=== PATIENT | female | born 1995 | race American Indian/Alaskan Native ===

== ENCOUNTER 2017-06-25 15:09 | Emergency (ER) | payer OTHER ==
[2017-06-25] MEDS ORDERED: TESSALON PERLES PO ONE (19:14)
[2017-06-25] MEDS ORDERED: MOTRIN PO ONE (19:14)
--- NOTE | 2017-06-25 20:27 | Emergency Department Report ---
- General Chief Complaint: Upper Respiratory Infection Stated Complaint: FLU LIKE SYMPTOMS Time Seen by Provider: 06/25/17 19:06 Source: patient Mode of arrival: Ambulatory Limitations: No Limitations - History of Present Illness Initial Comments: This is a 22-year-old female nontoxic, well nourished in appearance, no acute signs of distress presents to the ED with c/o of productive cough, body aches, rhinorrhea, nasal congestion, and sore throat x2 days. Patient describes productive cough as yellow mucus production. Patient denies any sick contact. Patient denies any recent travels, long car, recent hospital stays. Patient denies any calf pain or calf tenderness. Patient denies any chest pain, short of breath, fever, chills, nausea, vomiting, hemoptysis, numbness, tingling, headache or stiff neck. Patient denies any drug allergies . PMH includes DM. Last menstrual cycle 06/12/2017. Patient denies any chances of . MD Complaint: cough, sore throat, rhinorrhea, nasal congestion, other (body aches) -: days(s) (2) Severity: mild Severity scale (0 -10): 8 Quality: aching Consistency: constant Improves With: nothing Worsens With: nothing Associated Symptoms: rhinorrhea, nasal congestion, sore throat, cough. denies: fever, chills, myalgias, diaphoresis, headache, stiff neck, chest pain, shortness of breath, abdominal pain, nausea, vomiting, diarrhea, dysuria, rash, confusion, right sweats, weight loss, epistaxis, hoarseness, ear pain Treatments Prior to Arrival: none - Related Data Home Medications Medication Instructions Recorded Confirmed Last Taken HumuLIN 70-30 Vial 03/29/16 03/29/16 HumuLIN R 03/29/16 03/29/16 Previous Rx's Medication Instructions Recorded Last Taken Type Diphenhydramine HCl [Benadryl 25 mg PO Q6H #30 tablet 03/29/16 Unknown Rx Allergy TAB] Prednisone [predniSONE 10 mg 10 mg PO .TAPER #1 tab.ds.pk 03/29/16 Unknown Rx (6-Day Pack, 21 Tabs)] Azithromycin [Zithromax Z-ISREAL] 250 mg PO DAILY #6 tablet 06/25/17 Unknown Rx Benzonatate [Tessalon Perle] 100 mg PO Q6H PRN #20 capsule 06/25/17 Unknown Rx Ibuprofen [Motrin] 600 mg PO Q8H PRN #30 tablet 06/25/17 Unknown Rx Oseltamivir [Tamiflu] 75 mg PO BID #14 cap 06/25/17 Unknown Rx Allergies Allergy/AdvReac Type Severity Reaction Status Date / Time Fish Containing Products Allergy Rash Verified 03/29/16 12:41 ED Review of Systems ROS: Stated complaint: FLU LIKE SYMPTOMS Other details as noted in HPI Constitutional: denies: chills, fever Eyes: denies: eye pain, eye discharge, vision change ENT: denies: ear pain, throat pain Respiratory: cough. denies: shortness of breath, wheezing Cardiovascular: denies: chest pain, palpitations Endocrine: no symptoms reported Gastrointestinal: denies: abdominal pain, nausea, diarrhea Genitourinary: denies: urgency, dysuria, discharge Musculoskeletal: denies: back pain, joint swelling, arthralgia Skin: denies: rash, lesions Neurological: denies: headache, weakness, paresthesias Psychiatric: denies: anxiety, depression Hematological/Lymphatic: denies: easy bleeding, easy bruising ED Past Medical Hx - Past Medical History Hx Diabetes: Yes (Type I) Hx Arthritis: No Additional medical history: eczema - Surgical History Past Surgical History?: No - Social History Smoking Status: Never Smoker Substance Use Type: None - Medications Home Medications: Home Medications Medication Instructions Recorded Confirmed Last Taken Type Diphenhydramine HCl [Benadryl 25 mg PO Q6H #30 tablet 03/29/16 Unknown Rx Allergy TAB] HumuLIN 70-30 Vial 03/29/16 03/29/16 History HumuLIN R 03/29/16 03/29/16 History Prednisone [predniSONE 10 mg 10 mg PO .TAPER #1 tab.ds.pk 03/29/16 Unknown Rx (6-Day Pack, 21 Tabs)] Azithromycin [Zithromax Z-ISREAL] 250 mg PO DAILY #6 tablet 06/25/17 Unknown Rx Benzonatate [Tessalon Perle] 100 mg PO Q6H PRN #20 capsule 06/25/17 Unknown Rx Ibuprofen [Motrin] 600 mg PO Q8H PRN #30 tablet 06/25/17 Unknown Rx Oseltamivir [Tamiflu] 75 mg PO BID #14 cap 06/25/17 Unknown Rx ED Physical Exam - General Limitations: No Limitations General appearance: alert, in no apparent distress - Head Head exam: Present: atraumatic, normocephalic - Eye Eye exam: Present: normal appearance Pupils: Present: normal accommodation - ENT ENT exam: Present: normal exam, mucous membranes moist, TM's normal bilaterally , normal external ear exam - Expanded ENT Exam Expanded Ear exam: Present: normal external inspection Mouth exam: Present: normal external inspection, tongue normal. Absent: drooling, trismus, muffled voice, tongue elevation, laceration Teeth exam: Present: normal inspection Throat exam: Positive: normal inspection, tonsillar erythema, other (Uvula midline. No abscess or swelling notd. ). Negative: tonsillomegaly, tonsillar exudate, R peritonsillar mass, L peritonsillar mass - Neck Neck exam: Present: normal inspection, full ROM. Absent: tenderness, meningismus, lymphadenopathy, thyromegaly - Respiratory Respiratory exam: Present: normal lung sounds bilaterally. Absent: respiratory distress, wheezes, rales, rhonchi, stridor, chest wall tenderness, accessory muscle use, decreased breath sounds, prolonged expiratory - Cardiovascular Cardiovascular Exam: Present: regular rate, normal rhythm, normal heart sounds. Absent: irregular rhythm, systolic murmur, diastolic murmur, rubs, gallop - GI/Abdominal GI/Abdominal exam: Present: soft, normal bowel sounds. Absent: distended, tenderness, guarding, rebound, rigid, diminished bowel sounds - Rectal Rectal exam: Present: deferred - Extremities Exam Extremities exam: Present: normal inspection, full ROM, normal capillary refill - Back Exam Back exam: Present: normal inspection, full ROM - Neurological Exam Neurological exam: Present: alert, oriented X3, normal gait - Psychiatric Psychiatric exam: Present: normal affect, normal mood - Skin Skin exam: Present: warm, dry, intact, normal color. Absent: rash ED Course Vital Signs 06/25/17 06/25/17 06/25/17 15:22 19:26 20:26 Temperature 99.3 F Pulse Rate 102 H Respiratory 18 18 18 Rate Blood Pressure 143/95 Blood Pressure [Left] O2 Sat by Pulse 100 Oximetry 06/25/17 21:13 Temperature Pulse Rate 71 Respiratory 18 Rate Blood Pressure Blood Pressure 126/80 [Left] O2 Sat by Pulse 98 Oximetry - Reevaluation(s) Reevaluation #1: 06/25/17 20:34 Patient is speaking in full sentences with no signs of distress noted. ED Medical Decision Making - Medical Decision Making This is a 22-year-old female that presents with upper respiratory infection and influenza. Patient is stable and was examined by me. Chest x-ray has been obtained and dictated by radiologist with normal exam. Patient is notified of x -ray results with no questions noted. Due to patient having symptoms of upper respiratory infection and symptoms of influenza and worsening I will treat patient empirically Tamiflu with zpak. Patient is within the >72 hour window for tamiflu. Patient was instructed to increase hydration, rest and take Motrin for fever episodes. Patient received motrin and tesslone perrls in the ED. Vitals stable. Patient is nonfebrile and normal heart rate. Patient was orally hydrated and patient tolerated well known nausea or vomiting. Patient was instructed Follow-up with a primary care doctor in 3-5 days or if symptoms worsen and continue return to emergency room as soon as possible. At time time of discharge, the patient does not seem toxic or ill in appearance. No acute signs of distress noted. Patient agrees to discharge treatment plan of care. No further questions noted by the patient. Critical care attestation.: If time is entered above; I have spent that time in minutes in the direct care of this critically ill patient, excluding procedure time. ED Disposition Clinical Impression: Influenza Upper respiratory infection Qualifiers: URI type: unspecified URI Qualified Code(s): J06.9 - Acute upper respiratory infection, unspecified Disposition: DC-01 TO HOME OR SELFCARE Is pt being admited?: No Does the pt Need Aspirin: No Condition: Stable Instructions: Azithromycin (By mouth), Oseltamivir (By mouth), Influenza (ED), Upper Respiratory Infection (ED) Additional Instructions: Follow-up with a primary care doctor in 3-5 days or if symptoms worsen and continue return to emergency room as soon as possible. Prescriptions: Azithromycin [Zithromax Z-ISREAL] 250 mg PO DAILY #6 tablet Benzonatate [Tessalon Perle] 100 mg PO Q6H PRN #20 capsule PRN Reason: Cough Ibuprofen [Motrin] 600 mg PO Q8H PRN #30 tablet PRN Reason: Pain Oseltamivir [Tamiflu] 75 mg PO BID #14 cap Referrals: PRIMARY CARE,MD [Primary Care Provider] - 3-5 Days TIO LECHUGA MD [Staff Physician] - 3-5 Days [facility] [Outside] - 3-5 Days [facility] [Outside] - 3-5 Days Forms: Work/School Release Form(ED)
[2017-06-25 21:14] VITALS: BP 126/80
--- NOTE | 2017-06-25 22:21 | XRay Report ---
FINAL REPORT PROCEDURE: XR CHEST ROUTINE 2V TECHNIQUE: PA and lateral chest radiographs were obtained. CPT 41856 HISTORY: cough COMPARISON: No prior studies are available for comparison. FINDINGS: Heart: Normal. Mediastinum/Vessels: Normal. Lungs/Pleural space: Normal. Bony thorax: No acute osseous abnormality. Other: IMPRESSION: Negative examination.
== END 2017-06-25 22:49 | disposition home or self-care (01) ==
LOC: ED 15:09
DX: J11.1 Influenza due to unidentified influenza virus with other respiratory manifestations (principal); J06.9 Acute upper respiratory infection, unspecified; E10.8 Type 1 diabetes mellitus with unspecified complications
CPT/HCPCS: 71046

== ENCOUNTER 2018-05-22 14:00 | Emergency (ER) | payer OTHER ==
--- NOTE | 2018-05-22 15:30 | Emergency Department Report ---
ED Recheck HPI - General Chief Complaint: Abdominal Pain Stated Complaint: MED REFILL/ABD PAIN/MOUTH PAIN Time Seen by Provider: 05/22/18 15:25 Source: patient Mode of arrival: Ambulatory Limitations: No Limitations - History of Present Illness Initial Comments: This is a 23 year old female that presents for medication refills. Past medical history of diabetes mellitus type I. Patient states she went to get refills last month but they didn't tell her she needed more refills. She is completely out of humalin 70/30. Patient state she took her last dose this morning. She denies diaphoresis, shortness of breath, chest pain, or visual changes. MD Complaint: medication refill request Returns Today for: request for prescription Symptoms Since Prior Visit: no new symptoms Context: ran out of medication Associated Symptoms: none - Related Data Home Medications Medication Instructions Recorded Confirmed Last Taken HumuLIN 70-30 Vial 03/29/16 03/29/16 HumuLIN R 03/29/16 03/29/16 Previous Rx's Medication Instructions Recorded Last Taken Type Diphenhydramine HCl [Benadryl 25 mg PO Q6H #30 tablet 03/29/16 Unknown Rx Allergy TAB] Prednisone [predniSONE 10 mg 10 mg PO .TAPER #1 tab.ds.pk 03/29/16 Unknown Rx (6-Day Pack, 21 Tabs)] Azithromycin [Zithromax Z-ISREAL] 250 mg PO DAILY #6 tablet 06/25/17 Unknown Rx Benzonatate [Tessalon Perle] 100 mg PO Q6H PRN #20 capsule 06/25/17 Unknown Rx Ibuprofen [Motrin] 600 mg PO Q8H PRN #30 tablet 06/25/17 Unknown Rx Oseltamivir [Tamiflu] 75 mg PO BID #14 cap 06/25/17 Unknown Rx Insulin NPH Hum/Reg Insulin Hm 100 unit SQ BID #1 vial 05/22/18 Unknown Rx [HumuLIN 70-30 Vial] Allergies Allergy/AdvReac Type Severity Reaction Status Date / Time Fish Containing Products Allergy Rash Verified 03/29/16 12:41 ED Review of Systems ROS: Stated complaint: MED REFILL/ABD PAIN/MOUTH PAIN Other details as noted in HPI Constitutional: denies: chills, fever Respiratory: denies: cough, shortness of breath, wheezing Cardiovascular: denies: chest pain, palpitations Gastrointestinal: denies: abdominal pain, nausea, diarrhea Skin: denies: rash, lesions Neurological: denies: headache, weakness, paresthesias Psychiatric: denies: anxiety, depression ED Past Medical Hx - Past Medical History Hx Diabetes: Yes (Type I) Hx Arthritis: No Additional medical history: eczema - Social History Smoking Status: Never Smoker Substance Use Type: None - Medications Home Medications: Home Medications Medication Instructions Recorded Confirmed Last Taken Type Diphenhydramine HCl [Benadryl 25 mg PO Q6H #30 tablet 03/29/16 Unknown Rx Allergy TAB] HumuLIN 70-30 Vial 03/29/16 03/29/16 History HumuLIN R 03/29/16 03/29/16 History Prednisone [predniSONE 10 mg 10 mg PO .TAPER #1 tab.ds.pk 03/29/16 Unknown Rx (6-Day Pack, 21 Tabs)] Azithromycin [Zithromax Z-ISREAL] 250 mg PO DAILY #6 tablet 06/25/17 Unknown Rx Benzonatate [Tessalon Perle] 100 mg PO Q6H PRN #20 capsule 06/25/17 Unknown Rx Ibuprofen [Motrin] 600 mg PO Q8H PRN #30 tablet 06/25/17 Unknown Rx Oseltamivir [Tamiflu] 75 mg PO BID #14 cap 06/25/17 Unknown Rx Insulin NPH Hum/Reg Insulin Hm 100 unit SQ BID #1 vial 05/22/18 Unknown Rx [HumuLIN 70-30 Vial] ED Physical Exam - General Limitations: No Limitations General appearance: alert, in no apparent distress - Respiratory Respiratory exam: Present: normal lung sounds bilaterally. Absent: respiratory distress - Cardiovascular Cardiovascular Exam: Present: regular rate, normal rhythm. Absent: systolic murmur, diastolic murmur, rubs, gallop - GI/Abdominal GI/Abdominal exam: Present: soft, normal bowel sounds. Absent: distended, tenderness, guarding, rebound, rigid, organomegaly, mass - Neurological Exam Neurological exam: Present: alert, oriented X3, normal gait - Psychiatric Psychiatric exam: Present: normal affect, normal mood - Skin Skin exam: Present: warm, dry, intact, normal color. Absent: rash ED Course Vital Signs 05/22/18 15:25 Temperature 98.5 F Pulse Rate 85 Respiratory 20 Rate Blood Pressure 134/92 Blood Pressure 134/92 [Right] O2 Sat by Pulse 100 Oximetry ED Recheck MDM - Differential Diagnosis Prescription Refill(s) - Medical Decision Making Patient was examined by me. Vitals are normal and patient is in no acute distress. Patient is asymptomatic and requesting medication refills for diabetes. Start Humulin 70/30. Plan discussed with patient to discharge home and treat outpatient. She agrees with ER plan. Patient discharged home in stable condition. Follow up with PCP or motel front desk clerk for continued care. Critical care attestation.: If time is entered above; I have spent that time in minutes in the direct care of this critically ill patient, excluding procedure time. ED Disposition Clinical Impression: Encounter for medication refill Diabetes mellitus Qualifiers: Diabetes mellitus type: type 1 Diabetes mellitus complication status: without complication Qualified Code(s): E10.9 - Type 1 diabetes mellitus without complications Disposition: TO HOME OR SELFCARE Is pt being admited?: No Does the pt Need Aspirin: No Condition: Stable Instructions: Diabetes Mellitus Type 1 in Adults (ED) Additional Instructions: Follow-up with your primary care doctor or motel front desk clerk for continued refills. Prescriptions: Insulin NPH Hum/Reg Insulin Hm [HumuLIN 70-30 Vial] 100 unit SQ BID #1 vial Referrals: [facility] [Outside] - 3-5 Days [facility] [Outside] - 3-5 Days [facility] [Outside] - 3-5 Days Time of Disposition: 15:38
== END 2018-05-22 15:51 | disposition home or self-care (01) ==
LOC: ED 14:00
CPT/HCPCS: 99282

== ENCOUNTER 2018-06-03 04:46 | Emergency (ER) | payer OTHER ==
[2018-06-03 05:19] LABS: Basophils % (Auto) 0.3 % (0.0-1.8); Eosinophils % (Auto) 0.1 % (0.0-4.3); Hematocrit 34.3 % (30.3-42.9); Hemoglobin 11.4 gm/dl (10.1-14.3); Lymphocytes # (Auto) 0.8 K/mm3 (1.2-5.4); Lymphocytes % (Auto) 6.7 % (13.4-35.0); Mean Corpuscular HGB Conc 33 % (30-34); Mean Corpuscular Volume 82 fl (79-97); Monocytes # (Auto) 0.8 K/mm3 (0.0-0.8); Platelet Count 301 K/mm3 (140-440); Red Blood Count 4.17 M/mm3 (3.65-5.03); Red Cell Distribution Width 13.8 % (13.2-15.2)
[2018-06-03 05:40] LABS: BUN/Creatinine Ratio 10; Blood Urea Nitrogen 10 mg/dL (7-17); Calcium 8.9 mg/dL (8.4-10.2); Hemolysis Index 0
[2018-06-03] MEDS ORDERED: SUBLIMAZE ONE (05:41)
[2018-06-03] MEDS ORDERED: ZOFRAN ONE (05:41)
[2018-06-03] MEDS ORDERED: SUBLIMAZE IV ONE (05:47)
[2018-06-03] MEDS ORDERED: ZOFRAN IV ONE ×2 (05:50→06:25)
[2018-06-03] MEDS ORDERED: NACL 0.9% 1000 ML 1,000 ML IV ONE (06:21)
[2018-06-03] MEDS ORDERED: MORPHINE IV ONE (06:25)
[2018-06-03] MEDS ORDERED: ZOSYN/NS 3.375GM/50ML 50 ML IV ONE (06:26)
[2018-06-03] MEDS ORDERED: HumuLIN R SUB-Q ONE (06:30)
[2018-06-03 06:39] LABS: Alanine Aminotransferase 25 units/L (7-56); Albumin 3.5 g/dL (3.9-5)
[2018-06-03 06:43] LABS: Bilirubin,Direct < 0.2 mg/dL (0-0.2)
--- NOTE | 2018-06-03 06:51 | Emergency Department Report ---
ED Abdominal Pain HPI - General Chief Complaint: Abdominal Pain Stated Complaint: NAUSEA/MOUTH PAIN Time Seen by Provider: 06/03/18 06:05 Source: patient, family Mode of arrival: Ambulatory Limitations: No Limitations - History of Present Illness Initial Comments: This is a 21-year-old female with suprapubic abdominal pain. She states that she is mid cycle. She states that she does get pain midcycle sometimes. Does not report vaginal discharge nor fever. She has not been vomiting. The pain is not radiating. She has had nausea and vomiting. She is xyo-vqygzhp-ygxqejwvi diabetic. She states that she has some incidental problems with her dentition) a right lower third molar. She is not currently taking antibiotics thereof. She did not measure her temperature. She states that her bowel movements have been normal. MD Complaint: abdominal pain -: Gradual, days(s) Location: suprapubic Radiation: none Migration to: no migration Severity scale (0 -10): 8 Quality: aching Consistency: constant Improves With: nothing Worsens With: nothing Associated Symptoms: nausea, vomiting - Related Data LMP (females 10-50): 3 weeks (about 2 weeks) Home Medications Medication Instructions Recorded Confirmed Last Taken HumuLIN 70-30 Vial 03/29/16 03/29/16 HumuLIN R 03/29/16 03/29/16 Previous Rx's Medication Instructions Recorded Last Taken Type Diphenhydramine HCl [Benadryl 25 mg PO Q6H #30 tablet 03/29/16 Unknown Rx Allergy TAB] Prednisone [predniSONE 10 mg 10 mg PO .TAPER #1 tab.ds.pk 03/29/16 Unknown Rx (6-Day Pack, 21 Tabs)] Azithromycin [Zithromax Z-ISREAL] 250 mg PO DAILY #6 tablet 06/25/17 Unknown Rx Benzonatate [Tessalon Perle] 100 mg PO Q6H PRN #20 capsule 06/25/17 Unknown Rx Ibuprofen [Motrin] 600 mg PO Q8H PRN #30 tablet 06/25/17 Unknown Rx Oseltamivir [Tamiflu] 75 mg PO BID #14 cap 06/25/17 Unknown Rx Insulin NPH Hum/Reg Insulin Hm 100 unit SQ BID #1 vial 05/22/18 Unknown Rx [HumuLIN 70-30 Vial] Allergies Allergy/AdvReac Type Severity Reaction Status Date / Time Fish Containing Products Allergy Rash Verified 03/29/16 12:41 ED Review of Systems ROS: Stated complaint: NAUSEA/MOUTH PAIN Other details as noted in HPI Constitutional: denies: chills, fever Eyes: denies: eye pain, eye discharge, vision change ENT: denies: ear pain, throat pain Respiratory: denies: cough, shortness of breath, wheezing Cardiovascular: denies: chest pain, palpitations Endocrine: no symptoms reported Gastrointestinal: abdominal pain, nausea, vomiting Genitourinary: denies: urgency, dysuria, discharge Musculoskeletal: denies: back pain, joint swelling, arthralgia Skin: denies: rash, lesions Neurological: denies: headache, weakness, paresthesias Psychiatric: denies: anxiety, depression Hematological/Lymphatic: denies: easy bleeding, easy bruising ED Past Medical Hx - Past Medical History Hx Diabetes: Yes (Type I) Hx Arthritis: No Additional medical history: eczema - Surgical History Past Surgical History?: No - Social History Smoking Status: Never Smoker Substance Use Type: None - Medications Home Medications: Home Medications Medication Instructions Recorded Confirmed Last Taken Type Diphenhydramine HCl [Benadryl 25 mg PO Q6H #30 tablet 03/29/16 Unknown Rx Allergy TAB] HumuLIN 70-30 Vial 03/29/16 03/29/16 History HumuLIN R 03/29/16 03/29/16 History Prednisone [predniSONE 10 mg 10 mg PO .TAPER #1 tab.ds.pk 03/29/16 Unknown Rx (6-Day Pack, 21 Tabs)] Azithromycin [Zithromax Z-ISREAL] 250 mg PO DAILY #6 tablet 06/25/17 Unknown Rx Benzonatate [Tessalon Perle] 100 mg PO Q6H PRN #20 capsule 06/25/17 Unknown Rx Ibuprofen [Motrin] 600 mg PO Q8H PRN #30 tablet 06/25/17 Unknown Rx Oseltamivir [Tamiflu] 75 mg PO BID #14 cap 06/25/17 Unknown Rx Insulin NPH Hum/Reg Insulin Hm 100 unit SQ BID #1 vial 05/22/18 Unknown Rx [HumuLIN 70-30 Vial] ED Physical Exam - General Limitations: No Limitations General appearance: alert, in no apparent distress - Head Head exam: Present: atraumatic, normocephalic - Eye Eye exam: Present: normal appearance. Absent: scleral icterus - ENT ENT exam: Present: mucous membranes moist, other (there was eroded and carious retained right lower third molar root without abscess formation) - Neck Neck exam: Present: normal inspection - Respiratory Respiratory exam: Present: normal lung sounds bilaterally. Absent: respiratory distress - Cardiovascular Cardiovascular Exam: Present: regular rate, normal rhythm. Absent: systolic murmur, diastolic murmur, rubs, gallop - GI/Abdominal GI/Abdominal exam: Present: soft, distended (mildly distended), tenderness (some discomfort to palpation suprapubic region), normal bowel sounds. Absent: guarding, rebound, rigid - Extremities Exam Extremities exam: Present: normal inspection - Back Exam Back exam: Present: normal inspection. Absent: CVA tenderness (R), CVA tenderness (L), muscle spasm, paraspinal tenderness, vertebral tenderness - Neurological Exam Neurological exam: Present: alert, oriented X3, CN II-XII intact. Absent: motor sensory deficit - Psychiatric Psychiatric exam: Present: normal affect, normal mood - Skin Skin exam: Present: warm, dry, intact, normal color. Absent: rash ED Course Vital Signs 06/03/18 04:54 Temperature 97.1 F L Pulse Rate 111 H Respiratory 20 Rate Blood Pressure 120/78 O2 Sat by Pulse 97 Oximetry ED Medical Decision Making - Lab Data Result diagrams: 06/03/18 05:07 06/03/18 05:07 Laboratory Results - last 24 hr 06/03/18 06/03/18 06/03/18 05:00 05:07 05:07 WBC 11.8 H RBC 4.17 Hgb 11.4 Hct 34.3 MCV 82 MCH 27 L MCHC 33 RDW 13.8 Plt Count 301 Lymph % (Auto) 6.7 L Navarro % (Auto) 7.0 Eos % (Auto) 0.1 Baso % (Auto) 0.3 Lymph # 0.8 L Navarro # 0.8 Eos # 0.0 Baso # 0.0 Seg Neutrophils % 85.9 H Seg Neutrophils # 10.2 H VBG pH Sodium 135 L Potassium 3.8 Chloride 98.9 Carbon Dioxide 22 Anion Gap 18 BUN 10 Creatinine 1.0 Estimated GFR > 60 BUN/Creatinine Ratio 10 Glucose 395 H POC Glucose 370 H Calcium 8.9 Magnesium Total Bilirubin Direct Bilirubin Indirect Bilirubin AST ALT Alkaline Phosphatase Total Protein Albumin Albumin/Globulin Ratio Lipase HCG, Qual 06/03/18 06/03/18 06/03/18 05:07 05:07 05:07 WBC RBC Hgb Hct MCV MCH MCHC RDW Plt Count Lymph % (Auto) Navarro % (Auto) Eos % (Auto) Baso % (Auto) Lymph # Navarro # Eos # Baso # Seg Neutrophils % Seg Neutrophils # VBG pH 7.464 H Sodium Potassium Chloride Carbon Dioxide Anion Gap BUN Creatinine Estimated GFR BUN/Creatinine Ratio Glucose POC Glucose Calcium Magnesium 3.00 H Total Bilirubin 0.30 Direct Bilirubin < 0.2 Indirect Bilirubin 0.1 AST 28 ALT 25 Alkaline Phosphatase 105 Total Protein 7.8 Albumin 3.5 L Albumin/Globulin Ratio 0.8 Lipase 15 HCG, Qual Negative Laboratory Results - last 24 hr 06/03/18 06/03/18 06/03/18 05:00 05:07 05:07 WBC 11.8 H RBC 4.17 Hgb 11.4 Hct 34.3 MCV 82 MCH 27 L MCHC 33 RDW 13.8 Plt Count 301 Lymph % (Auto) 6.7 L Navarro % (Auto) 7.0 Eos % (Auto) 0.1 Baso % (Auto) 0.3 Lymph # 0.8 L Navarro # 0.8 Eos # 0.0 Baso # 0.0 Seg Neutrophils % 85.9 H Seg Neutrophils # 10.2 H VBG pH Sodium 135 L Potassium 3.8 Chloride 98.9 Carbon Dioxide 22 Anion Gap 18 BUN 10 Creatinine 1.0 Estimated GFR > 60 BUN/Creatinine Ratio 10 Glucose 395 H POC Glucose 370 H Calcium 8.9 Magnesium Total Bilirubin Direct Bilirubin Indirect Bilirubin AST ALT Alkaline Phosphatase Total Protein Albumin Albumin/Globulin Ratio Lipase HCG, Qual Urine Color Urine Turbidity Urine pH Ur Specific Bonnyman Urine Protein Urine Glucose (UA) Urine Ketones Urine Blood Urine Nitrite Urine Bilirubin Urine Urobilinogen Ur Leukocyte Esterase Urine WBC (Auto) Urine RBC (Auto) U Epithel Cells (Auto) 06/03/18 06/03/18 06/03/18 05:07 05:07 05:07 WBC RBC Hgb Hct MCV MCH MCHC RDW Plt Count Lymph % (Auto) Navarro % (Auto) Eos % (Auto) Baso % (Auto) Lymph # Navarro # Eos # Baso # Seg Neutrophils % Seg Neutrophils # VBG pH 7.464 H Sodium Potassium Chloride Carbon Dioxide Anion Gap BUN Creatinine Estimated GFR BUN/Creatinine Ratio Glucose POC Glucose Calcium Magnesium 3.00 H Total Bilirubin 0.30 Direct Bilirubin < 0.2 Indirect Bilirubin 0.1 AST 28 ALT 25 Alkaline Phosphatase 105 Total Protein 7.8 Albumin 3.5 L Albumin/Globulin Ratio 0.8 Lipase 15 HCG, Qual Negative Urine Color Urine Turbidity Urine pH Ur Specific Bonnyman Urine Protein Urine Glucose (UA) Urine Ketones Urine Blood Urine Nitrite Urine Bilirubin Urine Urobilinogen Ur Leukocyte Esterase Urine WBC (Auto) Urine RBC (Auto) U Epithel Cells (Auto) 06/03/18 Unknown WBC RBC Hgb Hct MCV MCH MCHC RDW Plt Count Lymph % (Auto) Navarro % (Auto) Eos % (Auto) Baso % (Auto) Lymph # Navarro # Eos # Baso # Seg Neutrophils % Seg Neutrophils # VBG pH Sodium Potassium Chloride Carbon Dioxide Anion Gap BUN Creatinine Estimated GFR BUN/Creatinine Ratio Glucose POC Glucose Calcium Magnesium Total Bilirubin Direct Bilirubin Indirect Bilirubin AST ALT Alkaline Phosphatase Total Protein Albumin Albumin/Globulin Ratio Lipase HCG, Qual Urine Color Yellow Urine Turbidity Clear Urine pH 5.0 Ur Specific Bonnyman > 1.059 H Urine Protein 100 mg/dl Urine Glucose (UA) >=500 Urine Ketones 20 Urine Blood Mod Urine Nitrite Neg Urine Bilirubin Neg Urine Urobilinogen < 2.0 Ur Leukocyte Esterase Neg Urine WBC (Auto) 2.0 Urine RBC (Auto) 9.0 U Epithel Cells (Auto) 6.0 - Radiology Data TECHNIQUE: CT images are acquired through the Abdomen and Pelvis arterial and delayed phases following intravenous administration of contrast. Transaxial, coronal and sagittal reformations are provided. PRIORS: None FINDINGS: Partially visualized intrathoracic contents are unremarkable. The liver, gallbladder, pancreas, spleen, and adrenal glands are unremarkable. Kidneys show no worrisome lesions, hydronephrosis, or calculi. Urinary bladder is unremarkable. Anteverted uterus. There is a 3.8 centimeter functional right ovarian cyst. No significant free fluid in the pelvis. Small and large bowel are normal in caliber. Appendix is normal. No free air, free fluid, or lymphadenopathy identified. Aorta is normal in course and caliber. Superficial soft tissues are unremarkable. No acute or aggressive appearing skeletal findings. IMPRESSION: There are no acute findings in the abdomen or pelvis. A functional right ovarian cyst measures up to around 3.8 cm and may contribute to patient's symptoms. Ultrasound shows 3.7 cm somewhat complex ovarian cyst. No mention of free fluid nor torsion or tubo-ovarian abscess. Critical care attestation.: If time is entered above; I have spent that time in minutes in the direct care of this critically ill patient, excluding procedure time. ED Disposition Clinical Impression: Right ovarian cyst Hyperglycemia due to type 2 diabetes mellitus Qualifiers: Diabetes mellitus intermodal dispatcher insulin use: with intermodal dispatcher use Qualified Code(s): E11.65 - Type 2 diabetes mellitus with hyperglycemia; Z79.4 - halfway (current) use of insulin Disposition: TO HOME OR SELFCARE Is pt being admited?: No Does the pt Need Aspirin: No Condition: Stable Instructions: Abdominal Pain (ED), Diabetes Mellitus Type 2 in Adults (ED), Ovarian Cyst (ED) Additional Instructions: Follow-up with your lens mounter on the fairly large sized ovarian cyst that you have. Active management of your glucose is required. If he do not have a primary care physician see referral. Diabetic diet. Use sliding scale coverage. Referrals: VEENA BARRETT MD [Primary Care Provider] - 3-5 Days
[2018-06-03] MEDS ORDERED: ZOSYN/NS 3.375GM/50ML 3.375 GM/50 ML BAG IV ONE (07:00)
--- NOTE | 2018-06-03 07:32 | Cat Scan Report ---
FINAL REPORT EXAM: CT ABDOMEN PELVIS W CON HISTORY: spurapubic pain TECHNIQUE: CT images are acquired through the Abdomen and Pelvis arterial and delayed phases followi ng intravenous administration of contrast. Transaxial, coronal and sagittal reformations are provided . PRIORS: None FINDINGS: Partially visualized intrathoracic contents are unremarkable. The liver, gallbladder, pancreas, spleen, and adrenal glands are unremarkable. Kidneys show no worrisome lesions, hydronephrosis, or calculi. Urinary bladder is unremarkable. Antev erted uterus. There is a 3.8 centimeter functional right ovarian cyst. No significant free fluid in t he pelvis. Small and large bowel are normal in caliber. Appendix is normal. No free air, free fluid, or lymphade nopathy identified. Aorta is normal in course and caliber. Superficial soft tissues are unremarkable. No acute or aggressive appearing skeletal findings. IMPRESSION: There are no acute findings in the abdomen or pelvis. A functional right ovarian cyst measures up to around 3.8 cm and may contribute to patient's symptoms.
--- NOTE | 2018-06-03 08:41 | Ultrasound Report ---
ULTRASOUND PELVIC COMPLETE ULTRASOUND TRANSVAGINAL HISTORY: Suprapubic pain. COMPARISON: CT abdomen pelvis with contrast performed the same day. TECHNIQUE: Transabdominal and transvaginal ultrasound with color doppler interrogation. FINDINGS: Uterus: The uterus is anteverted. The uterus measures 9.6 x 3.6 x 4.6 cm. No uterine mass is identified. Normal cervix. Endometrium: Normal. 8.4 mm in thickness. Right ovary: 4.8 x 3.4 x 4.2 cm. A 3.7 cm cyst containing debris is identified in the right ovary. No obvious soft tissue component or calcifications. Left ovary: 2.9 x 2.1 x 2.3 cm. No abnormality. No pelvic fluid or mass is identified. Normal color doppler interrogation. IMPRESSION: Slightly complex 3.7 cm right ovarian cyst.
[2018-06-03 09:56] LABS: Bilirubin,Urine NEG (Negative); Blood,Urine MOD (Negative); Color,Urine Yellow (Yellow); Urobilinogen,Urine < 2.0 mg/dL (<2.0)
[2018-06-03 11:34] VITALS: BP 115/77
== END 2018-06-03 11:33 | disposition home or self-care (01) ==
LOC: ED 04:46
DX: N83.201 Unspecified ovarian cyst, right side (principal); E10.65 Type 1 diabetes mellitus with hyperglycemia; Z91.013 Allergy to seafood; Z79.899 Other long term (current) drug therapy; Z79.4 Long term (current) use of insulin
CPT/HCPCS: 36415; 74177; 76830; 76856; 80048; 80076; 81001; 82805; 82962; 83690; 83735; 84703; 85025; 96361; 96365; 96372; 96375; 96376; 99285; J2270; J2405; J2543; J3010; J7030; Q9967; J1815

== ENCOUNTER 2019-09-05 13:01 | Emergency (ER) | payer OTHER ==
[2019-09-05 13:36] VITALS: BP 133/81
--- NOTE | 2019-09-05 18:03 | XRay Report ---
CHEST 2 VIEWS INDICATION / CLINICAL INFORMATION: Fever, body aches. COMPARISON: 06/25/2017 FINDINGS: SUPPORT DEVICES: None. HEART / MEDIASTINUM: No significant abnormality. LUNGS / PLEURA: No significant pulmonary or pleural abnormality. No pneumothorax. ADDITIONAL FINDINGS: No significant additional findings. IMPRESSION: 1. No acute findings. Signer Name: Jeet Moss MD Signed: 09/05/2019 5:59 PM Workstation Name: [id number]
[2019-09-05] MEDS ORDERED: IBUPROFEN 800 MG TAB PO ONE (18:13)
--- NOTE | 2019-09-05 18:18 | Emergency Department Report ---
ED General Adult HPI - General Chief complaint: Pain General Stated complaint: BODY PAIN Time Seen by Provider: 09/05/19 17:35 Source: patient Mode of arrival: Ambulatory Limitations: No Limitations - History of Present Illness Initial comments: 24-year-old -[place] female patient without significant past medical history presents with complaints of body aches and left-sided throat pain x2 days. She also reports a mild cough that is nonproductive. Patient denies any chest pain, shortness of breath, congestion, nausea/vomiting/diarrhea, abdominal pain, dysuria/hematuria/urinary frequency, neck pain, or headaches. She rates her current throat pain as a 7/10 in severity and states the pain worsens with swallowing. -: Sudden Severity scale (0 -10): 7 - Related Data Home Medications Medication Instructions Recorded Confirmed Last Taken HumuLIN 70-30 Vial 03/29/16 03/29/16 Previous Rx's Medication Instructions Recorded Last Taken Type Diphenhydramine HCl [Benadryl 25 mg PO Q6H #30 tablet 03/29/16 Unknown Rx Allergy TAB] Prednisone [predniSONE 10 mg 10 mg PO .TAPER #1 tab.ds.pk 03/29/16 Unknown Rx (6-Day Pack, 21 Tabs)] Azithromycin [Zithromax Z-ISREAL] 250 mg PO DAILY #6 tablet 06/25/17 Unknown Rx Benzonatate [Tessalon Perle] 100 mg PO Q6H PRN #20 capsule 06/25/17 Unknown Rx Ibuprofen [Motrin] 600 mg PO Q8H PRN #30 tablet 06/25/17 Unknown Rx Oseltamivir [Tamiflu] 75 mg PO BID #14 cap 06/25/17 Unknown Rx HumuLIN R See Protocol SQ BID 30 Days 06/03/18 Unknown Rx Insulin NPH Hum/Reg Insulin Hm 100 unit SQ BID #1 vial 06/03/18 Unknown Rx [HumuLIN 70-30 Vial] traMADoL [Ultram] 50 mg PO Q6HR PRN #14 tablet 06/03/18 Unknown Rx Amoxicillin [Trimox CAP] 500 mg PO BID 10 Days #20 capsule 09/05/19 Unknown Rx Allergies Allergy/AdvReac Type Severity Reaction Status Date / Time Fish Containing Products Allergy Rash Verified 04/05/19 15:44 ED Review of Systems ROS: Stated complaint: BODY PAIN Other details as noted in HPI Constitutional: malaise. denies: chills, diaphoresis, fever, weakness ENT: throat pain Respiratory: cough. denies: shortness of breath Cardiovascular: denies: chest pain, palpitations Gastrointestinal: denies: abdominal pain, nausea, vomiting Genitourinary: denies: urgency, dysuria, frequency Neurological: denies: headache, weakness ED Past Medical Hx - Past Medical History Previous Medical History?: Yes Hx Diabetes: Yes (Type I) Hx Arthritis: No Additional medical history: eczema - Social History Smoking Status: Never Smoker Substance Use Type: None - Medications Home Medications: Home Medications Medication Instructions Recorded Confirmed Last Taken Type Diphenhydramine HCl [Benadryl 25 mg PO Q6H #30 tablet 03/29/16 Unknown Rx Allergy TAB] HumuLIN 70-30 Vial 03/29/16 03/29/16 History Prednisone [predniSONE 10 mg 10 mg PO .TAPER #1 tab.ds.pk 03/29/16 Unknown Rx (6-Day Pack, 21 Tabs)] Azithromycin [Zithromax Z-ISREAL] 250 mg PO DAILY #6 tablet 06/25/17 Unknown Rx Benzonatate [Tessalon Perle] 100 mg PO Q6H PRN #20 capsule 06/25/17 Unknown Rx Ibuprofen [Motrin] 600 mg PO Q8H PRN #30 tablet 06/25/17 Unknown Rx Oseltamivir [Tamiflu] 75 mg PO BID #14 cap 06/25/17 Unknown Rx HumuLIN R See Protocol SQ BID 30 Days 06/03/18 Unknown Rx Insulin NPH Hum/Reg Insulin Hm 100 unit SQ BID #1 vial 06/03/18 Unknown Rx [HumuLIN 70-30 Vial] traMADoL [Ultram] 50 mg PO Q6HR PRN #14 tablet 06/03/18 Unknown Rx Amoxicillin [Trimox CAP] 500 mg PO BID 10 Days #20 capsule 09/05/19 Unknown Rx ED Physical Exam - General Limitations: No Limitations General appearance: alert, in no apparent distress - Head Head exam: Present: atraumatic, normocephalic - Eye Eye exam: Present: normal appearance. Absent: scleral icterus - Expanded ENT Exam Expanded Mouth exam: Present: tongue normal. Absent: drooling, trismus, muffled voice Throat exam: Positive: tonsillar erythema (Left-sided tonsillar swelling noted without exudate) - Neck Neck exam: Present: full ROM, lymphadenopathy (Mild left sided tender lympha denopathy noted). Absent: meningismus - Respiratory Respiratory exam: Present: normal lung sounds bilaterally. Absent: respiratory distress - Cardiovascular Cardiovascular Exam: Present: regular rate, normal rhythm. Absent: systolic murmur, diastolic murmur, rubs, gallop - Back Exam Back exam: Present: full ROM - Neurological Exam Neurological exam: Present: alert, oriented X3 - Psychiatric Psychiatric exam: Present: normal affect, normal mood - Skin Skin exam: Present: warm, dry, intact, normal color. Absent: rash, diaphoretic, erythema, petechiae, ecchymosis ED Course Vital Signs 09/05/19 09/05/19 13:35 18:36 Temperature 99.8 F H Pulse Rate 102 H 98 H Respiratory 18 Rate Blood Pressure 133/81 [Right] O2 Sat by Pulse 100 Oximetry ED Medical Decision Making - Radiology Data Radiology results: report reviewed - Medical Decision Making Patient here with complaints of body aches and sore throat for 2 days. She admits to a mild nonproductive cough. Chest x-ray is negative for abnormal findings. She is noted to have a low-grade temp of 99.8F. Left tonsillar erythema and swelling noted without uvula deviation or tonsillar abscess noted. She has no trismus or drooling on exam. Ibuprofen given. Will treat empirically for strep pharyngitis with amoxicillin. Patient to follow-up with primary care provider. Strict return precautions were discussed in great detail with patient who verbalized understanding. Advised patient uses ibuprofen and Tylenol as needed for pain and fever. Critical care attestation.: If time is entered above; I have spent that time in minutes in the direct care of this critically ill patient, excluding procedure time. ED Disposition Clinical Impression: Strep pharyngitis Disposition: DC-01 TO HOME OR SELFCARE Is pt being admited?: No Condition: Stable Instructions: Strep Throat (ED) Prescriptions: Amoxicillin [Trimox CAP] 500 mg PO BID 10 Days #20 capsule Referrals: [facility] [Provider Group] - 7-10 days Forms: Work/School Release Form(ED)
== END 2019-09-05 18:44 | disposition home or self-care (01) ==
LOC: ED 13:01
DX: J02.0 Streptococcal pharyngitis (principal); E10.8 Type 1 diabetes mellitus with unspecified complications; L30.9 Dermatitis, unspecified; Z79.1 Long term (current) use of non-steroidal anti-inflammatories (NSAID); Z79.2 Long term (current) use of antibiotics; Z79.4 Long term (current) use of insulin; Z79.899 Other long term (current) drug therapy; Z91.013 Allergy to seafood
CPT/HCPCS: 71046

== ENCOUNTER 2020-02-15 15:42 | Emergency (ER) | payer OTHER ==
--- NOTE | 2020-02-15 16:59 | Emergency Department Report ---
Blank Doc - Documentation Documentation: 25-year-old female presents emerged from complaining of severe lower abdominal pain associated with intractable vomiting of an unknown etiology currently on her menstrual cycle reports no suspicion for . Does feel weak and fatigued and lightheaded but no chest pain or palpitation no hemoptysis no hematemesis This initial assessment/diagnostic orders/clinical plan/treatment(s) is/are subject to change based on patients health status, clinical progression and re- assessment by fellow clinical providers in the ED. Further treatment and workup at subsequent clinical providers discretion. Patient/guardian urged not to elope from the ED as their condition may be serious if not clinically assessed and managed. Initial orders include: Labs, CT scan, may need fluids
[2020-02-15] MEDS ORDERED: SODIUM CHLORIDE 0.9% 1000 ML 1,000 ML IV ONE ×2 (17:03→19:45)
[2020-02-15] MEDS ORDERED: ONDANSETRON 4 MG/2 ML INJ IV STA (17:03)
[2020-02-15 17:30] LABS: Hematocrit 30.9 % (30.3-42.9); Hemoglobin 10.1 gm/dl (10.1-14.3); Mean Corpuscular HGB Conc 33 % (30-34); Mean Corpuscular Volume 81 fl (79-97); Platelet Count 266 K/mm3 (140-440); Red Blood Count 3.82 M/mm3 (3.65-5.03); Red Cell Distribution Width 14.7 % (13.2-15.2)
[2020-02-15 17:45] LABS: Alanine Aminotransferase 9 units/L (7-56); Albumin 3.3 g/dL (3.9-5); BUN/Creatinine Ratio 13; Blood Urea Nitrogen 13 mg/dL (7-17); Hemolysis Index 4
[2020-02-15] MEDS ORDERED: MORPHINE 4 MG/1 ML INJ ONE ×2 (18:33→21:49)
[2020-02-15] MEDS ORDERED: MORPHINE 4 MG/1 ML INJ IV ONE ×2 (18:49→21:50)
[2020-02-15] MEDS ORDERED: FAMOTIDINE 20 MG/2 ML INJ IV ONE (19:45)
--- NOTE | 2020-02-15 19:56 | Emergency Department Report ---
ED Abdominal Pain HPI - General Chief Complaint: Weakness Stated Complaint: NAUSEA/VOMIT Source: patient Mode of arrival: Wheelchair Limitations: No Limitations - History of Present Illness Initial Comments: Patient is a nulliparous 25-year-old -Turkmen female with a history of insulin-dependent diabetes and eczema who presents to the ED with complaint of acute onset persistent intractable nausea and vomiting, diffuse lower abdominal pain, generalized weakness and lightheadedness for the last 12 hours. Patient also complains of vaginal bleeding for the last 3 days. Patient also complains of persistent dry cough for the last 1 week. Patient states that her LMP was January 03, 2020. Patient states that her symptoms got worse in the last 3 hours, and she felt lightheaded with generalized weakness and has not been able to keep anything down including water because of intractable nausea and vomiting. Patient denies dysuria, vaginal discharge, dizziness, syncope, chest pain or shortness of breath, diarrhea, change in vision, palpitation, headache, fever and chills or low back pain. MD Complaint: abdominal pain (diffuse lower abdomen), other (Nausea and vomiting; Generalized weakness; Lightheadedness; Vaginal bleeding) -: Sudden, hour(s) (12) Location: LLQ, RLQ, suprapubic Radiation: LLQ, RLQ, suprapubic Migration to: no migration Severity: severe Severity scale (0 -10): 10 Quality: cramping, aching, sharp Consistency: constant Improves With: nothing Worsens With: vomiting Associated Symptoms: denies other symptoms, nausea, vomiting. denies: diarrhea, fever, chills, constipation, dysuria, hematemesis, hematochezia, melena, hematuria, anorexia - Related Data LMP Date: 01/03/20 Home Medications Medication Instructions Recorded Confirmed Last Taken HumuLIN 70-30 Vial 03/29/16 03/29/16 Previous Rx's Medication Instructions Recorded Last Taken Type Diphenhydramine HCl [Benadryl 25 mg PO Q6H #30 tablet 03/29/16 Unknown Rx Allergy TAB] Prednisone [predniSONE 10 mg 10 mg PO .TAPER #1 tab.ds.pk 03/29/16 Unknown Rx (6-Day Pack, 21 Tabs)] Azithromycin [Zithromax Z-ISREAL] 250 mg PO DAILY #6 tablet 06/25/17 Unknown Rx Benzonatate [Tessalon Perle] 100 mg PO Q6H PRN #20 capsule 06/25/17 Unknown Rx Ibuprofen [Motrin] 600 mg PO Q8H PRN #30 tablet 06/25/17 Unknown Rx Oseltamivir [Tamiflu] 75 mg PO BID #14 cap 06/25/17 Unknown Rx HumuLIN R See Protocol SQ BID 30 Days 06/03/18 Unknown Rx Insulin NPH Hum/Reg Insulin Hm 100 unit SQ BID #1 vial 06/03/18 Unknown Rx [HumuLIN 70-30 Vial] traMADoL [Ultram] 50 mg PO Q6HR PRN #14 tablet 06/03/18 Unknown Rx Amoxicillin [Trimox CAP] 500 mg PO BID 10 Days #20 capsule 09/05/19 Unknown Rx Acetaminophen [Tylenol] 500 mg PO Q6HR PRN #30 tablet 02/15/20 Unknown Rx Amoxicillin/Potassium Clav 1 each PO Q12H #20 tablet 02/15/20 Unknown Rx [Augmentin 875-125 Tablet] Ciprofloxacin HCl/Dexameth 1 drop OTIC BID #7.5 ml 02/15/20 Unknown Rx [Ciprodex Otic Suspension] Promethazine [Phenergan] 25 mg PO Q6HR PRN #30 tab 02/15/20 Unknown Rx Allergies Allergy/AdvReac Type Severity Reaction Status Date / Time Fish Containing Products Allergy Rash Verified 04/05/19 15:44 ED Review of Systems ROS: Stated complaint: NAUSEA/VOMIT Other details as noted in HPI Constitutional: malaise, weakness. denies: chills, fever Eyes: denies: eye pain, eye discharge, vision change ENT: denies: ear pain, throat pain Respiratory: denies: cough, shortness of breath, wheezing Cardiovascular: denies: chest pain, palpitations Endocrine: no symptoms reported Gastrointestinal: abdominal pain, nausea, vomiting. denies: diarrhea Genitourinary: frequency, abnormal menses (Heavy vaginal bleeding). denies: urgency, dysuria, discharge Musculoskeletal: denies: back pain, joint swelling, arthralgia Skin: denies: rash, lesions Neurological: denies: headache, weakness, paresthesias Psychiatric: denies: anxiety, depression Hematological/Lymphatic: denies: easy bleeding, easy bruising ED Past Medical Hx - Past Medical History Previous Medical History?: Yes Hx Diabetes: Yes (Type I) Hx Arthritis: No Additional medical history: eczema - Social History Smoking Status: Never Smoker Substance Use Type: None - Medications Home Medications: Home Medications Medication Instructions Recorded Confirmed Last Taken Type Diphenhydramine HCl [Benadryl 25 mg PO Q6H #30 tablet 03/29/16 Unknown Rx Allergy TAB] HumuLIN 70-30 Vial 03/29/16 03/29/16 History Prednisone [predniSONE 10 mg 10 mg PO .TAPER #1 tab.ds.pk 03/29/16 Unknown Rx (6-Day Pack, 21 Tabs)] Azithromycin [Zithromax Z-ISREAL] 250 mg PO DAILY #6 tablet 06/25/17 Unknown Rx Benzonatate [Tessalon Perle] 100 mg PO Q6H PRN #20 capsule 06/25/17 Unknown Rx Ibuprofen [Motrin] 600 mg PO Q8H PRN #30 tablet 06/25/17 Unknown Rx Oseltamivir [Tamiflu] 75 mg PO BID #14 cap 06/25/17 Unknown Rx HumuLIN R See Protocol SQ BID 30 Days 06/03/18 Unknown Rx Insulin NPH Hum/Reg Insulin Hm 100 unit SQ BID #1 vial 06/03/18 Unknown Rx [HumuLIN 70-30 Vial] traMADoL [Ultram] 50 mg PO Q6HR PRN #14 tablet 06/03/18 Unknown Rx Amoxicillin [Trimox CAP] 500 mg PO BID 10 Days #20 capsule 09/05/19 Unknown Rx Acetaminophen [Tylenol] 500 mg PO Q6HR PRN #30 tablet 02/15/20 Unknown Rx Amoxicillin/Potassium Clav 1 each PO Q12H #20 tablet 02/15/20 Unknown Rx [Augmentin 875-125 Tablet] Ciprofloxacin HCl/Dexameth 1 drop OTIC BID #7.5 ml 02/15/20 Unknown Rx [Ciprodex Otic Suspension] Promethazine [Phenergan] 25 mg PO Q6HR PRN #30 tab 02/15/20 Unknown Rx ED Physical Exam - General Limitations: No Limitations General appearance: alert, in no apparent distress - Head Head exam: Present: atraumatic, normocephalic, normal inspection - Eye Eye exam: Present: normal appearance, PERRL, EOMI Pupils: Present: normal accommodation - ENT ENT exam: Present: normal exam, normal orophraynx, mucous membranes moist, TM's normal bilaterally, normal external ear exam - Neck Neck exam: Present: normal inspection, full ROM - Respiratory Respiratory exam: Present: normal lung sounds bilaterally. Absent: respiratory distress, wheezes, rales, rhonchi, chest wall tenderness, accessory muscle use, decreased breath sounds, prolonged expiratory - Cardiovascular Cardiovascular Exam: Present: normal rhythm, tachycardia, normal heart sounds. Absent: systolic murmur, diastolic murmur, rubs, gallop - GI/Abdominal GI/Abdominal exam: Present: soft, tenderness (Palpable diffuse lower abdominal tenderness, worse in the right lower quadrant and suprapubic area), guarding, normal bowel sounds. Absent: rebound, hyperactive bowel sounds, hypoactive bowel sounds, mass - Bi-manual exam: Present: other (Pelvic exam deferred) - Extremities Exam Extremities exam: Present: normal inspection, full ROM, normal capillary refill - Back Exam Back exam: Present: normal inspection, full ROM. Absent: tenderness, CVA tenderness (R), CVA tenderness (L), muscle spasm, paraspinal tenderness, vertebral tenderness - Neurological Exam Neurological exam: Present: alert, oriented X3, CN II-XII intact, normal gait, reflexes normal - Psychiatric Psychiatric exam: Present: normal affect, normal mood - Skin Skin exam: Present: warm, dry, intact, normal color. Absent: rash ED Course Vital Signs 02/15/20 16:57 Temperature 98.4 F Pulse Rate 107 H Respiratory 18 Rate Blood Pressure 126/79 O2 Sat by Pulse 100 Oximetry ED Medical Decision Making - Lab Data Result diagrams: 02/15/20 17:18 02/15/20 17:18 - Radiology Data Radiology results: report reviewed, image reviewed Findings [address] [address] Ultrasound Report Signed Patient: RAJIV BARTON MR#: [id number] : 1995 Acct:[id number] Age/Sex: 25 / F ADM Date: 02/15/20 Loc: ED Attending Dr: Ordering Physician: ZACH CHENG Date of Service: 02/15/20 Procedure(s): US OB <= 14 weeks fetus Accession Number(s): [id number] cc: ZACH CHENG Pelvic ultrasound and Doppler INDICATION: Pelvic pain. FINDINGS: The uterus measures 9 x 5 x 5 cm. Endometrial thickness is 16 mm. There is heterogeneous material within the endometrial canal. There is some internal Doppler flow. There is a 1.6 cm cystlike lesion identified within the left ovary. The right ovary is unremarkable with normal Doppler flow. No large volume free pelvic fluid is identified. IMPRESSION: Slightly thickened endometrial complex with some increased Doppler flow. It is unclear if this represents retained products of conception or possible underlying mixed endometrium/blood products. Recommend short-term ultrasound follow-up for further evaluation. Signer Name: Carlos Ortega MD Signed: 02/15/2020 8:42 PM Workstation Name: [id number] Transcribed By: SAHIL Dictated By: Carlos Ortega MD Electronically Authenticated By: Carlos Ortega MD Signed Date/Time: 02/15/202041 DD/ 39 TD/TT: - Medical Decision Making This is a nulliparous 25-year-old -Turkmen female with a history of insulin-dependent diabetes and eczema who presents to the ED with complaint of acute onset persistent intractable nausea and vomiting, diffuse lower abdominal pain, generalized weakness and lightheadedness for the last 12 hours. Patient also complains of vaginal bleeding for the last 3 days. Patient also complains of persistent dry cough for the last 1 week. Patient states that her LMP was January 03, 2020. Patient states that her symptoms got worse in the last 3 hours, and she felt lightheaded with generalized weakness and has not been able to keep anything down including water because of intractable nausea and vomiting. In the ED, patient is alert and oriented x3 and is not in distress but tachycardic and afebrile in triage. Patient was treated for nausea and vomiting and was given normal saline 2 L IV bolus, and also treated for pain. Lab test results were reviewed and showed acute leukocytosis of 19,000, mild hyponatremia of 134 mmol/L, hyperglycemia 173 mg/dL and an incidental finding of hCG quant of 2817.0 consistent with positive . Given the fact the patient has been having low abdominal pain and vaginal bleeding at the moment, transvaginal ultrasound showed a slightly thickened endometrial complex with some increased Doppler flow. It is unclear if this represents retained products of conception or possible underlying mixed endometrium/blood products. Patient also received Rocephin 1 g IV x1 for UTI. On reevaluation, patient's pain is well controlled medications. Patient's nausea and vomiting was also controlled in the ED with medications. Patient was able to eat and drink with no difficulties. Patient was therefore discharged home on oral antibiotics, antiemetics and pain medications and was advised to return to the ED within 48 hours for serial hCG quant repeat tests to ascertain the viability of the . Patient was minimal advised to maintain a complete pelvic rest and to follow-up with [facility] physician in 2 to 3 days for reevaluation. Patient was otherwise advised to return to the ED immediately if her symptoms get worse. - Differential Diagnosis Threatened miscarriage; ectopic ; UTI; gastroenteritis; appendicit Critical care attestation.: If time is entered above; I have spent that time in minutes in the direct care of this critically ill patient, excluding procedure time. ED Disposition Clinical Impression: Acute bilateral lower abdominal pain, Nausea and vomiting during , as incidental finding, Vaginal bleeding in patient after first trimester, Incomplete miscarriage, Acute urinary tract infection Disposition: DC-01 TO HOME OR SELFCARE Is pt being admited?: No Does the pt Need Aspirin: No Condition: Stable Instructions: Vaginal Bleeding During , First Trimester, Nausea and Vomiting, Adult, [id number], First Trimester of , [id number], Vaginal Bleeding During , First Trimester, [id number], Miscarriage, [id number], Urinary Tract Infection, Adult, [id number] Additional Instructions: All lab test results were reviewed and showed leukocytosis of 19,000, hCG quant of 2817 and significant urinary tract infection in urinalysis. Transvaginal ultrasound showed slightly thickened endometrial complex with some increased Doppler flow. It is unclear if this represents retained products of conception or possible underlying mixed endometrium/blood products. It is therefore recommended that you return to the ED within 48 hours for serial hCG quant test repeat and possibly transvaginal ultrasound to further characterize the vi ability of the . Maintain a complete pelvic rest with no strenuous physical or sexual activities, take medication as advised and follow-up with your [facility] physician in 2 to 3 days for reevaluation. Return to the ED immediately if symptoms get worse. Prescriptions: Acetaminophen [Tylenol] 500 mg PO Q6HR PRN #30 tablet PRN Reason: Pain , Severe (7-10) Amoxicillin/Potassium Clav [Augmentin 875-125 Tablet] 1 each PO Q12H #20 tablet Ciprofloxacin HCl/Dexameth [Ciprodex Otic Suspension] 1 drop OTIC BID #7.5 ml Promethazine [Phenergan] 25 mg PO Q6HR PRN #30 tab PRN Reason: Nausea Forms: Work/School Release Form(ED) Time of Disposition: 23:44 Print Language: GEORGIAN
--- NOTE | 2020-02-15 20:47 | Ultrasound Report ---
Pelvic ultrasound and Doppler INDICATION: Pelvic pain. FINDINGS: The uterus measures 9 x 5 x 5 cm. Endometrial thickness is 16 mm. There is heterogeneous ma terial within the endometrial canal. There is some internal Doppler flow. There is a 1.6 cm cystlike lesion identified within the left ovary. The right ovary is unremarkable with normal Doppler flow. No large volume free pelvic fluid is identified. IMPRESSION: Slightly thickened endometrial complex with some increased Doppler flow. It is unclear if this represents retained products of conception or possible underlying mixed endometrium/blood produ cts. Recommend short-term ultrasound follow-up for further evaluation. Signer Name: Carlos Ortega MD Signed: 02/15/2020 8:42 PM Workstation Name: [id number]
[2020-02-15 20:49] LABS: Band Neutrophils # (Manual) 0.6 K/mm3; Basophils % (Manual) 0 % (0.0-1.8); Eosinophils % (Manual) 0 % (0.0-4.3); Platelet Estimate Consistent w Auto; RBC Morphology Normal; Total Cells Counted 100
[2020-02-15 21:08] LABS: Bilirubin,Urine NEG (Negative); Blood,Urine LG (Negative); Color,Urine Yellow (Yellow); Mucus,Urine FEW /HPF; Urobilinogen,Urine < 2.0 mg/dL (<2.0)
[2020-02-15 21:09] LABS: Protein,Urine >500 mg/dL (Negative)
[2020-02-15] MEDS ORDERED: cefTRIAXone/NS 1 GM/50 ML 1 GM/50 ML BAG IV ONE (21:11)
[2020-02-15 21:17] LABS: HCG Qualitative,Urine Positive (Negative)
[2020-02-15] MEDS ORDERED: ONDANSETRON 4 MG/2 ML INJ ONE (21:49)
[2020-02-15] MEDS ORDERED: ONDANSETRON 4 MG/2 ML INJ IV ONE (21:50)
[2020-02-16] MEDS ORDERED: SODIUM CHLORIDE 0.9% 1000 ML 1,000 ML IV ONE (00:08)
[2020-02-16] MEDS ORDERED: SODIUM CHLORIDE 0.9% 1000 ML 1,000 ML ONE (00:08)
[2020-02-16] MEDS ORDERED: LORazepam 1 MG TAB PO ONE (01:21)
[2020-02-16] MEDS ORDERED: ACETAMINOPHEN 500 MG TAB PO ONE (01:21)
[2020-02-16 08:26] VITALS: BP 106/54
== END 2020-02-16 02:50 | disposition home or self-care (01) ==
LOC: ED 15:42
DX: O03.4 Incomplete spontaneous abortion without complication (principal); O23.40 Unspecified infection of urinary tract in pregnancy, unspecified trimester; O21.8 Other vomiting complicating pregnancy; O26.891 Other specified pregnancy related conditions, first trimester; R10.2 Pelvic and perineal pain; E11.9 Type 2 diabetes mellitus without complications; Z3A.00 Weeks of gestation of pregnancy not specified; Z79.1 Long term (current) use of non-steroidal anti-inflammatories (NSAID); Z79.2 Long term (current) use of antibiotics; Z79.4 Long term (current) use of insulin; Z79.899 Other long term (current) drug therapy; Z91.013 Allergy to seafood
CPT/HCPCS: 36415; 76801; 80053; 81001; 81025; 82962; 83690; 84702; 85007; 85025; 86850; 86900; 86901; 87086; 96361; 96365; 96375; 96376; 99284; J0696; J2270; J2405; J7030

== ENCOUNTER 2021-07-31 22:23 | Outpatient (CLI) | payer OTHER, MEDICAID ==
[2021-07-31 23:09] VITALS: BP 155/91
[2021-07-31] MEDS ORDERED: LACTATED RINGERS 500 ML IV ONE (23:43)
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
== END 2021-08-01 00:44 | disposition home or self-care (01) ==
LOC: TRG 22:23 → APU 22:25 → TRG 08-01 00:44
PROVIDERS: ATTEND Obstetrics & Gynecology Gynecology
DX: Z34.92 Encounter for supervision of normal pregnancy, unspecified, second trimester (principal); Z3A.24 24 weeks gestation of pregnancy
CPT/HCPCS: 76815; 76819